=== PATIENT | female | born 1950 | race Caucasian/White ===

== ENCOUNTER 2020-11-07 18:09 | Inpatient (IN) ==
[2020-11-07] MEDS ORDERED: Dextrose Gel 15 GM/37.5 ML TUBE PO PRN ×2 (18:46)
[2020-11-07] MEDS ORDERED: D5% in Water 1,000 ML IVC PRN (18:46)
[2020-11-07] MEDS ORDERED: *HR* Dextrose 50 % in Water (Vial) 50 ML VIAL IVP PRN (18:46)
[2020-11-08] MEDS: cephALEXin 500 MG CAPSULE PO SCH ×5 (00:02→20:05)
[2020-11-08 06:59] LABS: Basophils % 0.4 %; Eosinophils # 0.5 K/mcL (0.0-0.6); Eosinophils % 6.8 %; Hematocrit 25.8 % (35.3-44.9); Hemoglobin 7.7 g/dL (11.5-15.4); Immature Granulocytes % 0.4 % (0-4); Lymphocytes # 1.5 K/mcL (0.6-4.6); Lymphocytes % 19.1 %; Mean Corpuscular HGB Conc 29.8 g/dL (31.6-35.5); Mean Corpuscular Hemoglobin 27.1 pg (28.0-33.3); Mean Corpuscular Volume 90.8 fL (83.0-100.0); Mean Platelet Volume 11.4 fL (9.4-12.4); Monocytes # 0.4 K/mcL (0.0-1.3); Neutrophils # 5.5 K/mcL (1.6-8.9); Platelet Count 204 K/mcL (140-400); Red Blood Count 2.84 M/mcL (3.82-4.97); Segmented Neutrophils % 68.3 %
[2020-11-08 07:59] LABS: BUN/Creatinine Ratio 25 (6-26); Blood Urea Nitrogen 17 mg/dL (8-23); Calcium 8.4 mg/dL (8.6-10.3); Carbon Dioxide 26 mEq/L (23-29); Chloride 102 mEq/L (98-107); Glucose 116 mg/dL (70-105); Osmolality,Calculated 285 (280-300); Potassium 4.1 mEq/L (3.5-5.1); Sodium 136 mEq/L (136-145); eGFR For African Americans > 60 (> 60); eGFR For Non-African Americans > 60 (> 60)
[2020-11-08] MEDS: Insulin LISPRO 300 UNITS/3 ML VIAL SUBQ SCH ×3 (08:02→16:03)
[2020-11-08] MEDS: FLUoxetine 20 MG CAPSULE PO SCH (08:02)
[2020-11-08] MEDS: Aspirin Enteric Coated 81 MG Tablet PO SCH (08:03)
[2020-11-08] MEDS: *HR* Metformin 500 MG TABLET PO SCH ×2 (08:03→16:01)
[2020-11-08] MEDS: *HR* Rivaroxaban 10 MG TABLET PO SCH (08:03)
[2020-11-08] MEDS: *HR* OxyCODONE Immed Rel 5 MG TABLET PO PRN (16:02)
[2020-11-09 05:22] LABS: Hematocrit 27.1 % (35.3-44.9); Hemoglobin 8.5 g/dL (11.5-15.4)
[2020-11-09] MEDS: Aspirin Enteric Coated 81 MG Tablet PO SCH (08:06)
[2020-11-09] MEDS: FLUoxetine 20 MG CAPSULE PO SCH (08:06)
[2020-11-09] MEDS: Insulin LISPRO 300 UNITS/3 ML VIAL SUBQ SCH ×3 (08:06→16:16)
[2020-11-09] MEDS: *HR* Rivaroxaban 10 MG TABLET PO SCH (08:07)
[2020-11-09] MEDS: *HR* Metformin 500 MG TABLET PO SCH ×2 (08:07→16:16)
[2020-11-09] MEDS: cephALEXin 500 MG CAPSULE PO SCH ×4 (08:07→20:19)
[2020-11-09 09:23] LABS: % Iron Saturation 9 % (15-50); Iron 27 mcg/dL (50-170); Transferrin 213 mg/dL (203-362)
[2020-11-09 09:49] LABS: Folate 10.1 ng/mL (3.0-16.0)
[2020-11-09] MEDS: *HR* OxyCODONE Immed Rel 5 MG TABLET PO PRN (22:10)
[2020-11-10] MEDS: *HR* OxyCODONE Immed Rel 5 MG TABLET PO PRN (06:50)
[2020-11-10] MEDS: Insulin LISPRO 300 UNITS/3 ML VIAL SUBQ SCH ×3 (07:36→16:19)
[2020-11-10] MEDS: Aspirin Enteric Coated 81 MG Tablet PO SCH (08:28)
[2020-11-10] MEDS: cephALEXin 500 MG CAPSULE PO SCH ×4 (08:28→20:38)
[2020-11-10] MEDS: *HR* Rivaroxaban 10 MG TABLET PO SCH (08:28)
[2020-11-10] MEDS: *HR* Metformin 500 MG TABLET PO SCH ×2 (08:28→17:14)
[2020-11-10] MEDS: FLUoxetine 20 MG CAPSULE PO SCH (08:28)
[2020-11-11] MEDS: *HR* OxyCODONE Immed Rel 5 MG TABLET PO PRN ×3 (01:21→16:54)
[2020-11-11] MEDS: Insulin LISPRO 300 UNITS/3 ML VIAL SUBQ SCH ×3 (09:46→16:07)
[2020-11-11] MEDS: FLUoxetine 20 MG CAPSULE PO SCH (09:49)
[2020-11-11] MEDS: *HR* Metformin 500 MG TABLET PO SCH ×2 (09:49→16:52)
[2020-11-11] MEDS: cephALEXin 500 MG CAPSULE PO SCH ×4 (09:49→20:12)
[2020-11-11] MEDS: *HR* Rivaroxaban 10 MG TABLET PO SCH (09:49)
[2020-11-11] MEDS: Aspirin Enteric Coated 81 MG Tablet PO SCH (09:49)
[2020-11-12] MEDS: *HR* OxyCODONE Immed Rel 5 MG TABLET PO PRN (05:58)
[2020-11-12] MEDS: Aspirin Enteric Coated 81 MG Tablet PO SCH (07:31)
[2020-11-12] MEDS: *HR* Rivaroxaban 10 MG TABLET PO SCH (07:32)
[2020-11-12] MEDS: cephALEXin 500 MG CAPSULE PO SCH ×4 (07:32→20:13)
[2020-11-12] MEDS: *HR* Metformin 500 MG TABLET PO SCH ×2 (07:32→16:55)
[2020-11-12] MEDS: FLUoxetine 20 MG CAPSULE PO SCH (07:32)
[2020-11-12] MEDS: Insulin LISPRO 300 UNITS/3 ML VIAL SUBQ SCH ×4 (07:33→20:20)
[2020-11-13] MEDS: *HR* OxyCODONE Immed Rel 5 MG TABLET PO PRN ×3 (00:03→20:41)
[2020-11-13] MEDS: Insulin LISPRO 300 UNITS/3 ML VIAL SUBQ SCH ×4 (08:22→20:41)
[2020-11-13] MEDS: Aspirin Enteric Coated 81 MG Tablet PO SCH (08:28)
[2020-11-13] MEDS: *HR* Metformin 500 MG TABLET PO SCH ×2 (08:29→17:24)
[2020-11-13] MEDS: *HR* Rivaroxaban 10 MG TABLET PO SCH (08:29)
[2020-11-13] MEDS: FLUoxetine 20 MG CAPSULE PO SCH (08:29)
[2020-11-13] MEDS: cephALEXin 500 MG CAPSULE PO SCH ×4 (08:30→20:41)
[2020-11-13] MEDS: Nystatin POWDER 30 GM BOTTLE TP SCH ×2 (08:30→20:42)
[2020-11-14] MEDS: *HR* OxyCODONE Immed Rel 5 MG TABLET PO PRN (03:05)
[2020-11-14 06:12] LABS: Basophils % 0.2 %; Eosinophils # 0.9 K/mcL (0.0-0.6); Eosinophils % 9.9 %; Hematocrit 26.9 % (35.3-44.9); Hemoglobin 8.2 g/dL (11.5-15.4); Immature Granulocytes % 0.9 % (0-4); Lymphocytes # 1.6 K/mcL (0.6-4.6); Mean Corpuscular HGB Conc 30.5 g/dL (31.6-35.5); Mean Corpuscular Hemoglobin 27.2 pg (28.0-33.3); Mean Corpuscular Volume 89.4 fL (83.0-100.0); Mean Platelet Volume 10.9 fL (9.4-12.4); Monocytes # 0.5 K/mcL (0.0-1.3); Monocytes % 5.5 %; Neutrophils # 5.9 K/mcL (1.6-8.9); Platelet Count 371 K/mcL (140-400); Red Blood Count 3.01 M/mcL (3.82-4.97); Segmented Neutrophils % 65.5 %; White Blood Count 9.1 K/mcL (4.3-11.1)
[2020-11-14 06:36] LABS: BUN/Creatinine Ratio 25 (6-26); Blood Urea Nitrogen 20 mg/dL (8-23); Calcium 8.7 mg/dL (8.6-10.3); Carbon Dioxide 29 mEq/L (23-29); Chloride 102 mEq/L (98-107); Glucose 116 mg/dL (70-105); Osmolality,Calculated 296 (280-300); Sodium 141 mEq/L (136-145); eGFR For African Americans > 60 (> 60); eGFR For Non-African Americans > 60 (> 60)
[2020-11-14] MEDS: Insulin LISPRO 300 UNITS/3 ML VIAL SUBQ SCH ×4 (07:54→21:58)
[2020-11-14] MEDS: FLUoxetine 20 MG CAPSULE PO SCH (09:03)
[2020-11-14] MEDS: *HR* Metformin 500 MG TABLET PO SCH ×2 (09:03→16:50)
[2020-11-14] MEDS: Aspirin Enteric Coated 81 MG Tablet PO SCH (09:03)
[2020-11-14] MEDS: *HR* Rivaroxaban 10 MG TABLET PO SCH (09:04)
[2020-11-14] MEDS: cephALEXin 500 MG CAPSULE PO SCH ×4 (09:04→21:55)
[2020-11-14] MEDS: Nystatin POWDER 30 GM BOTTLE TP SCH ×2 (09:05→22:03)
[2020-11-15] MEDS: Insulin LISPRO 300 UNITS/3 ML VIAL SUBQ SCH ×4 (07:40→21:20)
[2020-11-15] MEDS: *HR* Rivaroxaban 10 MG TABLET PO SCH (08:29)
[2020-11-15] MEDS: Aspirin Enteric Coated 81 MG Tablet PO SCH (08:29)
[2020-11-15] MEDS: *HR* Metformin 500 MG TABLET PO SCH ×2 (08:29→18:33)
[2020-11-15] MEDS: FLUoxetine 20 MG CAPSULE PO SCH (08:30)
[2020-11-15] MEDS: Nystatin POWDER 30 GM BOTTLE TP SCH ×2 (08:30→21:25)
[2020-11-15] MEDS: *HR* OxyCODONE Immed Rel 5 MG TABLET PO PRN (11:10)
[2020-11-15] MEDS: Melatonin 3 MG TABLET PO PRN (21:24)
[2020-11-16] MEDS: Insulin LISPRO 300 UNITS/3 ML VIAL SUBQ SCH ×4 (07:52→20:31)
[2020-11-16] MEDS: *HR* Metformin 500 MG TABLET PO SCH ×2 (08:14→16:35)
[2020-11-16] MEDS: Aspirin Enteric Coated 81 MG Tablet PO SCH (08:14)
[2020-11-16] MEDS: FLUoxetine 20 MG CAPSULE PO SCH (08:14)
[2020-11-16] MEDS: Nystatin POWDER 30 GM BOTTLE TP SCH (08:15)
[2020-11-16] MEDS: *HR* Rivaroxaban 10 MG TABLET PO SCH (08:15)
[2020-11-16] MEDS: *HR* OxyCODONE Immed Rel 5 MG TABLET PO PRN (08:20)
[2020-11-16] MEDS: Nystatin Cream 15 GM TUBE TP SCH ×2 (11:34→20:40)
[2020-11-16] MEDS: Melatonin 3 MG TABLET PO PRN (20:40)
[2020-11-17 07:06] LABS: Hemoglobin 8.2 g/dL (11.5-15.4)
[2020-11-17] MEDS: Insulin LISPRO 300 UNITS/3 ML VIAL SUBQ SCH ×4 (07:55→20:49)
[2020-11-17] MEDS: FLUoxetine 20 MG CAPSULE PO SCH (09:37)
[2020-11-17] MEDS: *HR* Rivaroxaban 10 MG TABLET PO SCH (09:37)
[2020-11-17] MEDS: Aspirin Enteric Coated 81 MG Tablet PO SCH (09:37)
[2020-11-17] MEDS: *HR* Metformin 500 MG TABLET PO SCH ×2 (09:37→16:26)
[2020-11-17] MEDS: Nystatin Cream 15 GM TUBE TP SCH (09:38)
[2020-11-17] MEDS ORDERED: Melatonin 3 MG TABLET PO PRN (14:42)
[2020-11-17] MEDS: *HR* OxyCODONE Immed Rel 5 MG TABLET PO PRN (15:39)
[2020-11-18] MEDS: *HR* OxyCODONE Immed Rel 5 MG TABLET PO PRN (01:29)
[2020-11-18] MEDS: Nystatin Cream 15 GM TUBE TP SCH ×2 (01:38→09:20)
[2020-11-18 06:35] LABS: Hematocrit 28.4 % (35.3-44.9); Hemoglobin 8.7 g/dL (11.5-15.4)
[2020-11-18 06:58] VITALS: BP 115/61
[2020-11-18] MEDS: Insulin LISPRO 300 UNITS/3 ML VIAL SUBQ SCH (07:35)
[2020-11-18] MEDS: *HR* Metformin 500 MG TABLET PO SCH (09:19)
[2020-11-18] MEDS: *HR* Rivaroxaban 10 MG TABLET PO SCH (09:19)
[2020-11-18] MEDS: Aspirin Enteric Coated 81 MG Tablet PO SCH (09:19)
[2020-11-18] MEDS: FLUoxetine 20 MG CAPSULE PO SCH (09:19)
== END 2020-11-18 12:10 | disposition home or self-care (01) | DRG 560 ==
LOC: INPPIK 23:35
PROVIDERS: ADMIT Family Medicine; ATTEND Family Medicine

== ENCOUNTER 2021-04-15 18:54 | Inpatient (IN) ==
[~2021-04-15 18:54] MED LIST: *HR* OxyCODONE Immed Rel 5 MG TABLET PO ONE
[2021-04-15] MEDS ORDERED: Acetaminophen/Aspirin/Caffeine TABLET PO PRN (22:33)
[2021-04-15] MEDS: *HR* OxyCODONE Immed Rel 5 MG TABLET PO PRN (23:28)
[2021-04-16] MEDS: *HR* Enoxaparin 40 MG/0.4 ML SYRINGE SQ SCH (04:52)
[2021-04-16] MEDS: diazePAM 2 MG TABLET PO PRN ×2 (05:34→16:48)
[2021-04-16] MEDS: *HR* OxyCODONE Immed Rel 5 MG TABLET PO PRN ×3 (06:46→21:40)
[2021-04-16 07:13] LABS: Basophils % 0.2 %; Eosinophils # 0.5 K/mcL (0.0-0.6); Eosinophils % 6.2 %; Hematocrit 25.5 % (35.3-44.9); Hemoglobin 7.5 g/dL (11.5-15.4); Immature Granulocytes % 0.8 % (0-4); Lymphocytes # 1.9 K/mcL (0.6-4.6); Lymphocytes % 22.7 %; Mean Corpuscular HGB Conc 29.4 g/dL (31.6-35.5); Mean Corpuscular Hemoglobin 24.4 pg (28.0-33.3); Mean Corpuscular Volume 83.1 fL (83.0-100.0); Mean Platelet Volume 11.3 fL (9.4-12.4); Monocytes # 0.5 K/mcL (0.0-1.3); Monocytes % 5.7 %; Neutrophils # 5.4 K/mcL (1.6-8.9); Nucleated Red Blood Cells 0.4 /100 WBC (0); Platelet Count 292 K/mcL (140-400); Red Blood Count 3.07 M/mcL (3.82-4.97); Red Cell Distribution Width 17.4 % (11.5-14.5); Segmented Neutrophils % 64.4 %; White Blood Count 8.4 K/mcL (4.3-11.1)
[2021-04-16] MEDS: FLUoxetine 20 MG CAPSULE PO SCH (07:16)
[2021-04-16 07:35] LABS: BUN/Creatinine Ratio 19 (6-26); Blood Urea Nitrogen 16 mg/dL (8-23); Calcium 8.3 mg/dL (8.6-10.3); Carbon Dioxide 31 mEq/L (23-29); Chloride 97 mEq/L (98-107); Glucose 169 mg/dL (70-105); Osmolality,Calculated 291 (280-300); Potassium 3.3 mEq/L (3.5-5.1); Sodium 138 mEq/L (136-145); eGFR For African Americans > 60 (> 60); eGFR For Non-African Americans > 60 (> 60)
[2021-04-16] MEDS ORDERED: *HR* OxyCODONE Immed Rel 5 MG TABLET PO ONE (07:35)
[2021-04-16 10:59] LABS: Hematocrit 27.8 % (35.3-44.9); Hemoglobin 8.3 g/dL (11.5-15.4)
[2021-04-16] MEDS ORDERED: Potassium Chloride Elixir 20 MEQ/15 ML UDC PO ONE (11:54)
[2021-04-16 16:11] LABS: Hematocrit 28.3 % (35.3-44.9); Hemoglobin 8.3 g/dL (11.5-15.4)
[2021-04-16] MEDS: Gabapentin 300 MG CAPSULE PO SCH (21:40)
[2021-04-17] MEDS: diazePAM 2 MG TABLET PO PRN ×2 (00:54→12:23)
[2021-04-17] MEDS: *HR* OxyCODONE Immed Rel 5 MG TABLET PO PRN ×2 (06:46→12:23)
[2021-04-17] MEDS: *HR* Enoxaparin 40 MG/0.4 ML SYRINGE SQ SCH (07:43)
[2021-04-17] MEDS: FLUoxetine 20 MG CAPSULE PO SCH (07:44)
[2021-04-17] MEDS: Gabapentin 300 MG CAPSULE PO SCH (20:42)
[2021-04-18] MEDS: diazePAM 2 MG TABLET PO PRN ×3 (02:46→20:03)
[2021-04-18] MEDS: *HR* OxyCODONE Immed Rel 5 MG TABLET PO PRN ×2 (04:54→20:00)
[2021-04-18] MEDS: FLUoxetine 20 MG CAPSULE PO SCH (09:23)
[2021-04-18] MEDS: *HR* Enoxaparin 40 MG/0.4 ML SYRINGE SQ SCH (09:26)
[2021-04-18] MEDS: Gabapentin 300 MG CAPSULE PO SCH (20:00)
[2021-04-19] MEDS: *HR* Enoxaparin 40 MG/0.4 ML SYRINGE SQ SCH (05:13)
[2021-04-19] MEDS: *HR* OxyCODONE Immed Rel 5 MG TABLET PO PRN ×3 (05:13→20:58)
[2021-04-19] MEDS: diazePAM 2 MG TABLET PO PRN ×2 (05:13→12:51)
[2021-04-19] MEDS: FLUoxetine 20 MG CAPSULE PO SCH (09:58)
[2021-04-19] MEDS: Gabapentin 300 MG CAPSULE PO SCH (20:58)
[2021-04-20] MEDS: *HR* OxyCODONE Immed Rel 5 MG TABLET PO PRN ×2 (04:01→16:55)
[2021-04-20] MEDS: *HR* Enoxaparin 40 MG/0.4 ML SYRINGE SQ SCH (06:26)
[2021-04-20] MEDS: FLUoxetine 20 MG CAPSULE PO SCH (09:22)
[2021-04-20] MEDS: diazePAM 2 MG TABLET PO PRN ×2 (09:22→16:55)
[2021-04-20] MEDS: Gabapentin 300 MG CAPSULE PO SCH (21:11)
[2021-04-21] MEDS: *HR* OxyCODONE Immed Rel 5 MG TABLET PO PRN ×3 (04:21→18:05)
[2021-04-21] MEDS: *HR* Enoxaparin 40 MG/0.4 ML SYRINGE SQ SCH (06:35)
[2021-04-21] MEDS: FLUoxetine 20 MG CAPSULE PO SCH (07:59)
[2021-04-21] MEDS: diazePAM 2 MG TABLET PO PRN ×2 (11:31→22:28)
[2021-04-21] MEDS: Gabapentin 300 MG CAPSULE PO SCH (22:27)
[2021-04-22] MEDS: *HR* OxyCODONE Immed Rel 5 MG TABLET PO PRN ×3 (00:26→21:08)
[2021-04-22] MEDS: *HR* Enoxaparin 40 MG/0.4 ML SYRINGE SQ SCH (06:34)
[2021-04-22] MEDS: diazePAM 2 MG TABLET PO PRN ×2 (06:34→22:36)
[2021-04-22 07:04] LABS: Basophils % 0.4 %; Eosinophils # 0.6 K/mcL (0.0-0.6); Eosinophils % 6.1 %; Hematocrit 27.5 % (35.3-44.9); Hemoglobin 7.8 g/dL (11.5-15.4); Immature Granulocytes % 0.7 % (0-4); Lymphocytes # 1.9 K/mcL (0.6-4.6); Lymphocytes % 20.7 %; Mean Corpuscular HGB Conc 28.4 g/dL (31.6-35.5); Mean Corpuscular Hemoglobin 24.3 pg (28.0-33.3); Mean Corpuscular Volume 85.7 fL (83.0-100.0); Mean Platelet Volume 10.6 fL (9.4-12.4); Monocytes # 0.6 K/mcL (0.0-1.3); Platelet Count 338 K/mcL (140-400); Red Blood Count 3.21 M/mcL (3.82-4.97); Red Cell Distribution Width 18.1 % (11.5-14.5); Segmented Neutrophils % 66.1 %; White Blood Count 9.1 K/mcL (4.3-11.1)
[2021-04-22 07:30] LABS: BUN/Creatinine Ratio 16 (6-26); Blood Urea Nitrogen 13 mg/dL (8-23); Calcium 8.7 mg/dL (8.6-10.3); Carbon Dioxide 25 mEq/L (23-29); Chloride 103 mEq/L (98-107); Glucose 109 mg/dL (70-105); Osmolality,Calculated 287 (280-300); Potassium 3.9 mEq/L (3.5-5.1); Sodium 138 mEq/L (136-145); eGFR For African Americans > 60 (> 60); eGFR For Non-African Americans > 60 (> 60)
[2021-04-22] MEDS: FLUoxetine 20 MG CAPSULE PO SCH (08:12)
[2021-04-22 09:39] LABS: Anisocytosis 1+ (Not Present); Hypochromasia Present (Not Present); Microcytosis Present (Not Present); Platelet Estimate Normal (Normal)
[2021-04-22] MEDS: Gabapentin 300 MG CAPSULE PO SCH (21:07)
[2021-04-23] MEDS: *HR* OxyCODONE Immed Rel 5 MG TABLET PO PRN (04:25)
[2021-04-23] MEDS: *HR* Enoxaparin 40 MG/0.4 ML SYRINGE SQ SCH (06:07)
[2021-04-23] MEDS: FLUoxetine 20 MG CAPSULE PO SCH (08:42)
[2021-04-23] MEDS: Ibuprofen 600 MG TABLET PO PRN (09:00)
[2021-04-23] MEDS: diazePAM 2 MG TABLET PO PRN ×2 (11:25→22:30)
[2021-04-23] MEDS: Gabapentin 300 MG CAPSULE PO SCH (20:09)
[2021-04-24] MEDS: *HR* OxyCODONE Immed Rel 5 MG TABLET PO PRN ×2 (01:17→15:31)
[2021-04-24] MEDS: Ibuprofen 600 MG TABLET PO PRN ×2 (05:14→20:15)
[2021-04-24] MEDS: *HR* Enoxaparin 40 MG/0.4 ML SYRINGE SQ SCH (05:14)
[2021-04-24] MEDS: diazePAM 2 MG TABLET PO PRN ×2 (08:36→15:32)
[2021-04-24] MEDS: FLUoxetine 20 MG CAPSULE PO SCH (08:36)
[2021-04-24] MEDS: Gabapentin 300 MG CAPSULE PO SCH (20:15)
[2021-04-25] MEDS: *HR* Enoxaparin 40 MG/0.4 ML SYRINGE SQ SCH (05:26)
[2021-04-25] MEDS: *HR* OxyCODONE Immed Rel 5 MG TABLET PO PRN (05:26)
[2021-04-25] MEDS: FLUoxetine 20 MG CAPSULE PO SCH (09:48)
[2021-04-25] MEDS: Ibuprofen 600 MG TABLET PO PRN (10:16)
[2021-04-25] MEDS: *HR* HYDROcodone/Acet 7.5/325 mg TABLET PO PRN ×2 (10:16→17:08)
[2021-04-25] MEDS: Gabapentin 300 MG CAPSULE PO SCH (21:15)
[2021-04-25] MEDS: Ibuprofen 600 MG TABLET PO SCH (21:15)
[2021-04-26] MEDS: *HR* HYDROcodone/Acet 7.5/325 mg TABLET PO PRN ×4 (05:06→23:13)
[2021-04-26] MEDS: *HR* Enoxaparin 40 MG/0.4 ML SYRINGE SQ SCH (05:07)
[2021-04-26] MEDS: Ibuprofen 600 MG TABLET PO SCH ×2 (09:20→20:16)
[2021-04-26] MEDS: FLUoxetine 20 MG CAPSULE PO SCH (09:20)
[2021-04-26] MEDS: diazePAM 2 MG TABLET PO PRN ×2 (12:20→20:16)
[2021-04-26 19:20] VITALS: PULSE 72
[2021-04-26] MEDS: Gabapentin 300 MG CAPSULE PO SCH (20:16)
[2021-04-27] MEDS: *HR* HYDROcodone/Acet 7.5/325 mg TABLET PO PRN (05:19)
[2021-04-27] MEDS: *HR* Enoxaparin 40 MG/0.4 ML SYRINGE SQ SCH (05:20)
[2021-04-27] MEDS: diazePAM 2 MG TABLET PO PRN (05:32)
[2021-04-27 08:57] VITALS: BP 163/77; RESP 18; TEMP 97.8; O2SAT 93
[2021-04-27] MEDS: FLUoxetine 20 MG CAPSULE PO SCH (10:04)
[2021-04-27] MEDS: Ibuprofen 600 MG TABLET PO SCH (10:05)
== END 2021-04-27 14:05 | disposition home or self-care (01) | DRG 552 ==
LOC: INPPIK 20:44
PROVIDERS: ADMIT Family Medicine; ATTEND Family Medicine